=== PATIENT | female | born 1985 | race Caucasian/White ===

== ENCOUNTER 2017-01-15 05:30 | Emergency (ER) | payer OTHER ==
[2017-01-15 09:54] LABS: BASOPHIL % 0.6 % (0-2); PLATELET COUNT 265 x10^3mcL (130-400); RED CELL DISTRIBUTION WIDTH 13.5 % (11.5-14.5)
[2017-01-15 11:35] VITALS: BP 120/70
== END 2017-01-15 11:35 | disposition home or self-care (01) ==
LOC: ED 05:30
PROVIDERS: Specialist
DX: N83.202 Unspecified ovarian cyst, left side (principal); N83.201 Unspecified ovarian cyst, right side; N76.0 Acute vaginitis
CPT/HCPCS: 36415; 87491; 87591

== ENCOUNTER 2019-07-20 18:46 | Emergency (ER) | payer OTHER ==
[~2019-07-20] VITALS: Ht 165.1 cm; Wt 101.2 kg
[2019-07-20 19:00] VITALS: Ht 165.1 cm; Wt 101.2 kg
[2019-07-20 20:53] VITALS: BP 143/79
== END 2019-07-20 21:07 | disposition home or self-care (01) ==
LOC: ED 18:46
DX: S93.402A Sprain of unspecified ligament of left ankle, initial encounter (principal); Z88.0 Allergy status to penicillin; V49.49XA Driver injured in collision with other motor vehicles in traffic accident, initial encounter; Y93.I9 Activity, other involving external motion; Y92.413 State road as the place of occurrence of the external cause; Y99.8 Other external cause status
CPT/HCPCS: Q0092